=== PATIENT | male | born 1970 | race Caucasian/White ===

== ENCOUNTER 2017-11-20 10:39 | Emergency (ER) | payer OTHER ==
[~2017-11-20] VITALS: Ht 177.8 cm; Wt 83.9 kg
[2017-11-20] MEDS ORDERED: LISINOPRIL40 M1 PO (10:56)
[2017-11-20] MEDS ORDERED: AMLODIPINE BESY10 M1 PO (10:57)
[2017-11-20] MEDS ORDERED: ALPRAZOLAM0.5 M4 PO (10:57)
[2017-11-20] MEDS ORDERED: METOPROLOL TART25 M1 PO (10:58)
--- NOTE | 2017-11-20 11:12 | ED GENERAL ADULT ---
History of Present Illness General Chief Complaint: Fall Stated Complaint: FALL Source: patient Exam Limitations: no limitations Vital Signs & Intake/Output Vital Signs & Intake/Output Vital Signs Date Time Temp Pulse Resp B/P B/P Pulse O2 O2 Flow FiO2 Mean Ox Delivery Rate 11/20 1307 97.5 95 18 171/96 96 11/20 1045 84 20 161/92 99 Room Air Allergies Coded Allergies: No Known Drug Allergies (Intermediate, NONE 11/20/17) Reconcile Medications Alprazolam 0.5 MG TABLET 1 TAB PO QPM SLEEP (Reported) Amlodipine Besylate 10 MG TABLET 1 TAB PO DAILY HEART (Reported) Lisinopril 40 MG TABLET 1 TAB PO DAILY HEART (Reported) Metoprolol Tartrate 25 MG TABLET 1 TAB PO BID HEART (Reported) Triage Note: BIBA FROM WORK, PT STATES HE WAS MOVING GARBAGE CANS OFF A TRUCK AND WAS STRUCK BY CANS, WHICH PUSHED HIM FORWARD OFF BACK OF TRUCK. UNSURE OF LANDING. C/O R KNEE PAIN WITH + DEFORMITY. HAS ABRASION ON LEFT ELBOW. DENIES OTHER PAIN. Triage Nurses Notes Reviewed? 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 Patient states that he was loading heavy objects (trach cans) onto truck when a safety mechanism holding the objects fell off. Patient does not believe that he had any of them land on him but fell off truck. Unsure if had direct impact or teist motion. Unsure of pop. (Sepideh Mast MD) Past History Travel History Traveled to [place] past 21 day No Medical History Any Pertinent Medical History? see below for history Cardiovascular: hypertension Surgical History Surgical History: non-contributory Psychosocial History What is your primary language O[place]i Tobacco Use: Current Daily Use Daily Tobacco Use Amount/Type: => 5 Cigarettes daily ETOH Use: denies use Family History Hx Contributory? No (Sepideh Mast MD) Review of Systems Review of Systems Constitutional: Denies: no symptoms. Respiratory: Denies: short of breath. GI: Denies: nausea, vomiting. Musculoskeletal: Reports: joint pain. (Sepideh Mast MD) Physical Exam Physical Exam General Appearance: well developed/nourished, no apparent distress, alert, awake Head: atraumatic, normal appearance Neck: normal inspection, supple, full range of motion, no midline tenderness Respiratory: normal breath sounds, chest non-tender, no respiratory distress Cardiovascular: regular rate/rhythm Peripheral Pulses: 4+ dorsalis pedis (R), 4+ dorsalis pedis (L) Gastrointestinal: soft, non-tender Extremities: right knee shows a valgus deformation, diffusely swollen and tender to palpation Neurologic/Psych: sensation in all planes of right foot and lower leg intact, 5/ 5 dorsi/plantar flexion on right foot Core Measures ACS in differential dx? No CVA/TIA Diagnosis: No Sepsis Present: No Sepsis Focused Exam Completed? No (Kezia HEREDIA,Sepideh) Progress Differential Diagnoses I considered the following diagnoses in my evaluation of the patient: patella fx, plateau fx, ligament injury, less likely vasuclar injry given that patient is distally neurovascularly intact Plan of Care: Orders Procedure Date/time Status PROTHROMBIN TIME 11/20 1305 Active COMPREHENSIVE METABOLIC PANEL 11/20 1305 Active CREATINE PHOSPHOKINASE 11/20 1305 Active CBC WITHOUT DIFFERENTIAL 11/20 1305 Active Laboratory Tests 11/20/17 1310: Sodium Pending, Potassium Pending, Chloride Pending, Carbon Dioxide Pending, Anion Gap Pending, BUN Pending, Creatinine Pending, BUN/Creatinine Ratio Pending , Glucose Pending, Calcium Pending, Total Bilirubin Pending, AST Pending, ALT Pending, Alkaline Phosphatase Pending, Creatine Kinase Pending, Total Protein Pending, Albumin Pending, Globulin Pending, Albumin/Globulin Ratio Pending, PT Pending, INR Pending, CBC w Diff Pending, WBC Pending, RBC Pending, Hgb Pending, Hct Pending, MCV Pending, MCH Pending, MCHC Pending, RDW Pending, Plt Count Pending, MPV Pending Initial ED EKG: none Comments: Patient with multiple right knee fractures: 1. Comminuted intra-articular fracture of the proximal tibial metaphysis with intra-articular extension and disruption of the lateral tibial plateau articular surface. 2. Comminuted and impacted proximal fibular metaphyseal fracture with overriding of fracture fragments. Spoke with Dr. Mitchell here who expressed that patient will need trauma repair of this complex injury and is at risk for compartment syndrome within next 24 hours. Patient on multiple examinations has soft LL compartments with intact motor and senstion distally with 2+ DP pulse by palpation. For any questions or concerns, please feel free to call me personally at (Sepideh Mast MD) Departure Departure Disposition: OTHER [facility] (ACUTE) Condition: Stable Clinical Impression Primary Impression: Tibia fracture Secondary Impressions: Fibula fracture Departure Forms: Customer Survey General Discharge Information (Sepideh Mast MD) PA/FOREST AIDE Co-Sign Statement Statement: ED Attending supervision documentation- x I saw and evaluated the patient. I have also reviewed all the pertinent lab results and diagnostic results. I agree with the findings and the plan of care as documented in the PA's/FOREST AIDE's documentation. Deformity of lower extremity with tib-fib fracture. Patient is hemodynamically stable for transfer. [] I have reviewed the ED Record and agree with the PA's/FOREST AIDE's documentation. [] Additions or exceptions (if any) to the PAs/FOREST AIDE's note and plan are summarized below: [] (Diego HEREDIA,Jose Luis) Critical Care Note Critical Care Note Critical Care Time: 30-74 min Comments: Coordinating transfer care, repeat examinations (Sepideh Mast MD)
--- NOTE | 2017-11-20 12:31 | RADIOLOGY REPORT ---
EXAMINATION: CR KNEE, RIGHT CLINICAL INFORMATION: Knee deformity. Unsure if twisting injury or direct impact. Presumptive diagnosis of fracture, ligament tear. Patient states he fell off the truck. COMPARISON: None TECHNIQUE: Four views of the right knee. FINDINGS: There is a comminuted transverse fracture of the proximal tibial metaphysis with intra-articular extension of the fracture line to the region of the tibial spines and the lateral tibial plateau. There is a significant depression of the lateral tibial plateau and the lateral tibial fracture component is distracted and displaced laterally by at least 0.4 cm at the tibial articular surface level and at least 0.7 cm at the tibial metaphysis level. Comminuted impacted fracture of the proximal fibular metaphysis and fibular head is seen with overriding of fracture fragments. Large fat fluid level is seen within the suprapatellar bursa, consistent with a hemarthrosis. Subtle arteriovascular calcifications is seen in the posterior soft tissues. IMPRESSION: 1. Comminuted intra-articular fracture of the proximal tibial metaphysis with intra-articular extension and disruption of the lateral tibial plateau articular surface. 2. Comminuted and impacted proximal fibular metaphyseal fracture with overriding of fracture fragments. 3. Large suprapatellar hemarthrosis.
[2017-11-20 13:07] VITALS: BP 171/96
[2017-11-20 13:38] LABS: ABSOLUTE BASOPHIL COUNT 0 /CUMM (0.0-0.2); ABSOLUTE EOSINOPHIL COUNT 0.1 /CUMM (0.0-0.7); ABSOLUTE LYMPH COUNT 1.6 /CUMM (1.2-3.4); ABSOLUTE MONOCYTE COUNT 0.6 /CUMM (0.10-0.60); BASOPHIL % 0.5 % (0.0-2.0); GRANULOCYTE % 71.6 % (42.2-75.2); HEMATOCRIT 38.3 % (42-52); MEAN CORPUSCULAR HGB 30.9 PG (27.0-31.0); MEAN CORPUSCULAR HGB CONC 33.9 G/DL (33.0-37.0); MEAN PLATELET VOLUME 8.9 FL (7.4-10.4); PLATELET COUNT 228 /CUMM (130-400); RBC DISTRIBUTION WIDTH 17.6 % (11.5-14.5); RED BLOOD CELL CT 4.21 /CUMM (4.70-6.10); WHITE BLOOD CELL COUNT 8.3 /CUMM (4.8-10.8)
== END 2017-11-20 13:56 | disposition short-term general hospital (02) ==
LOC: ERH 10:39 → EDBD 10:39 → ERH 11:52
PROVIDERS: Emergency Medicine
DX: S82.141A Displaced bicondylar fracture of right tibia, initial encounter for closed fracture (principal); S89.201A Unspecified physeal fracture of upper end of right fibula, initial encounter for closed fracture; X58.XXXA Exposure to other specified factors, initial encounter; Y92.9 Unspecified place or not applicable; Y93.89 Activity, other specified; I10 Essential (primary) hypertension; F17.210 Nicotine dependence, cigarettes, uncomplicated
CPT/HCPCS: 73560-RT